=== PATIENT | female | born 1990 | race Caucasian/White ===

== ENCOUNTER 2019-09-24 20:18 | Emergency (ER) | payer OTHER ==
[~2019-09-24] VITALS: Ht 165.1 cm; Wt 123.6 kg
[2019-09-24] MEDS ORDERED: ZOFRAN ODT4 MG PO (20:45)
[2019-09-24 21:13] VITALS: BP 151/64
== END 2019-09-24 21:14 | disposition home or self-care (01) ==
LOC: ER 20:18
DX: R11.2 Nausea with vomiting, unspecified (principal); R51 Headache; M54.6 Pain in thoracic spine; Z88.0 Allergy status to penicillin; V49.9XXA Car occupant (driver) (passenger) injured in unspecified traffic accident, initial encounter; Y93.89 Activity, other specified; Y92.89 Other specified places as the place of occurrence of the external cause; Y99.8 Other external cause status

== ENCOUNTER 2019-11-08 18:19 | Emergency (ER) | payer OTHER ==
[~2019-11-08] VITALS: Ht 165.1 cm; Wt 114.3 kg
[~2019-11-08 18:19] MED LIST: ZOFRAN ODT4 MG PO
[2019-11-08] MEDS ORDERED: MECLIZINE HCL25 M1 PO (18:47)
[2019-11-08 19:06] LABS: ABSOLUTE NEUTROPHILS 5.8 thou/uL (1.4-8.2); BASOPHILS 0.7 % (0.0-2.0); EOSINOPHILS 3.2 % (0.0-3.0); HEMATOCRIT 41.8 % (37.0-47.0); HEMOGLOBIN 14.3 gm/dL (12.0-15.0); LYMPHOCYTES 36.3 % (24.0-44.0); MCHC 34.1 g/dL (28.0-37.0); MCV 87.8 fL (80.0-100.0); PLATELET COUNT 283 thou/uL (150-400); POLYS 54.8 % (36.0-66.0); RBC 4.77 mil/uL (4.20-5.00); RDW 14.6 % (10.5-14.5); WBC 10.6 thou/uL (4.0-11.0)
[2019-11-08 19:17] LABS: CALCIUM 9.2 mg/dL (8.5-10.1); CREATININE 0.8 mg/dL (0.6-1.0); MAGNESIUM 2.1 mg/dL (1.8-2.4); POTASSIUM 3.6 mmol/L (3.5-5.1)
[2019-11-08 20:31] VITALS: BP 123/57
== END 2019-11-08 20:32 | disposition home or self-care (01) ==
LOC: ER 18:19
PROVIDERS: Emergency Medicine
DX: F07.81 Postconcussional syndrome (principal); R11.2 Nausea with vomiting, unspecified; I10 Essential (primary) hypertension; Z90.89 Acquired absence of other organs; Z90.49 Acquired absence of other specified parts of digestive tract; Z88.0 Allergy status to penicillin; Z79.899 Other long term (current) drug therapy

== ENCOUNTER 2020-09-10 19:27 | Emergency (ER) | payer OTHER ==
[~2020-09-10] VITALS: Ht 165.1 cm; Wt 105.2 kg
[~2020-09-10 19:27] MED LIST changes: +MECLIZINE HCL25 M1 PO
[2020-09-10] MEDS ORDERED: ESCITALOPRA5 MG/5 ML PO (20:34)
[2020-09-10] MEDS ORDERED: ULTRAM 50MG TAB50 MG PO (21:33)
[2020-09-10 21:51] VITALS: BP 125/58
== END 2020-09-10 21:54 | disposition home or self-care (01) ==
LOC: ER 19:27
DX: M79.672 Pain in left foot (principal); M25.572 Pain in left ankle and joints of left foot; I10 Essential (primary) hypertension; Z90.89 Acquired absence of other organs; Z79.899 Other long term (current) drug therapy; Z88.0 Allergy status to penicillin

== ENCOUNTER 2020-10-04 09:23 | Emergency (ER) | payer OTHER ==
[~2020-10-04] VITALS: Ht 165.1 cm; Wt 102.1 kg
[~2020-10-04 09:23] MED LIST changes: +ESCITALOPRA5 MG/5 ML PO; +ULTRAM 50MG TAB50 MG PO
[2020-10-04 09:27] VITALS: BP 136/59
[2020-10-04] MEDS ORDERED: MAGNESIUM PO ×2 (09:32)
[2020-10-04] MEDS ORDERED: MAGNESIUM ×2 (09:32)
[2020-10-04] MEDS ORDERED: BARIATRIC MULTIVIT PO ×2 (09:32)
[2020-10-04 09:57] LABS: ABSOLUTE NEUTROPHILS 6.5 thou/uL (1.4-8.2); BASOPHILS 0.5 % (0.0-2.0); EOSINOPHILS 3.2 % (0.0-3.0); HEMATOCRIT 40.9 % (37.0-47.0); HEMOGLOBIN 13.5 gm/dL (12.0-15.0); LYMPHOCYTES 31.6 % (24.0-44.0); MCH 29.9 pg (26.0-34.0); MCV 90.4 fL (80.0-100.0); MONOCYTES 4.4 % (1.0-8.0); PLATELET COUNT 252 thou/uL (150-400); POLYS 60.3 % (36.0-66.0); RBC 4.53 mil/uL (4.20-5.00); WBC 10.7 thou/uL (4.0-11.0)
[2020-10-04 10:06] LABS: CALCIUM 9.1 mg/dL (8.5-10.1); CREATININE 1.1 mg/dL (0.6-1.0); POTASSIUM 3.8 mmol/L (3.5-5.1)
[2020-10-04 10:13] LABS: ALBUMIN 3.6 g/dL (3.4-5.0); TOTAL BILIRUBIN 0.5 mg/dL (0.2-1.0)
[2020-10-04 14:13] LABS: URINE BILIRUBIN NEGATIVE (Negative); URINE BLOOD 1+ (Negative); URINE CLARITY CLEAR; URINE COLOR YELLOW; URINE GLUCOSE-RANDOM* NEGATIVE (Negative); URINE KETONES NEGATIVE (Negative); URINE LEUKOCYTES-REFLEX NEGATIVE (Negative); URINE PROTEIN (DIPSTICK) NEGATIVE (Negative); URINE UROBILINOGEN 0.2 E.U./dl (0.2-1.0)
[2020-10-04 14:21] LABS: URINE NITRITE-REFLEX POSITIVE (Negative)
[2020-10-04 14:23] VITALS: BP 151/63
[2020-10-04 14:32] LABS: SQUAMOUS 4-10 Moderate /LPF (0-3)
[2020-10-04 14:37] LABS: BACTERIA-REFLEX None Seen /HPF (None Seen); CALCIUM OXALATE 0-3 Few /LPF (None Seen); CASTS None Seen /LPF (None Seen); URINE RBC 3-10 Few /HPF (NONE SEEN); URINE WBC-REFLEX None Seen /HPF (0-5)
[2020-10-04 20:39] VITALS: BP 149/57
--- NOTE | 2020-10-04 20:52 | NUR ---
PT C/O LLQ AND LUQ ABDOMINAL PAIN 05/13. SHE DID NOT WANT ANY PAIN MEDICATION. C/O NAUSEA. BELCHING NOTED. ZOFRAN GIVEN.
[2020-10-05 05:17] VITALS: BP 108/46
--- NOTE | 2020-10-05 06:21 | NUR ---
VSS DURING THE NIGHT. IVF INFUSING ORDERED. PT WAS GIVEN ZOFRAN FOR NAUSEA AND HYDROCODONE FOR ABDOMINAL PAIN. PT STATED PAIN AND NAUSEA IMPROVED. SHE SLEPT MOST OF THE NIGHT. RESPIRATIONS EVEN AND UNLABORED. WILL GIVE REPORT TO ONCOMING NURSE.
[2020-10-05 07:06] LABS: HEMATOCRIT 32.8 % (37.0-47.0); MCH 30.1 pg (26.0-34.0); MCHC 33.7 g/dL (28.0-37.0); MCV 89.4 fL (80.0-100.0); RBC 3.67 mil/uL (4.20-5.00); RDW 13.4 % (10.5-14.5); WBC 11.2 thou/uL (4.0-11.0)
[2020-10-05 07:17] LABS: CALCIUM 8.4 mg/dL (8.5-10.1); CREATININE 1.5 mg/dL (0.6-1.0); POTASSIUM 3.9 mmol/L (3.5-5.1)
--- NOTE | 2020-10-05 09:51 | NUR ---
LYRIC DOMINGUEZ @ UROLOGY [phone]
--- NOTE | 2020-10-05 10:44 | NUR ---
ALBERTO @ UROLOGY REPORTS PATIENT IS SAFE TO GO HOME AND ALREADY HAS UROLOGY APPOINTMENT SET WITH SURGERY ON MON AT 1330, REPORTS PATIENT IS AWARE OF THIS ALREADY.
--- NOTE | 2020-10-05 11:13 | NUR ---
TALKED TO DR. SHAFFER AND NOTIFIED OF UROLOGY RECOMMENDATIONS.
[2020-10-05] MEDS ORDERED: FLOMAX0.4 MG PO ×2 (12:42)
[2020-10-05] MEDS ORDERED: HYDROCODON-ACE1 EAC7 PO ×2 (12:42)
[2020-10-05] MEDS ORDERED: CIPRO500 M1 PO ×2 (12:43)
[2020-10-05 13:16] VITALS: BP 125/54
[2020-10-05 14:29] VITALS: BP 121/60
[2020-10-06] MEDS ORDERED: ZOFRAN ODT4 MG PO (23:44)
== END 2020-10-05 14:30 | disposition home or self-care (01) ==
LOC: ER 09:23 → EROBS 15:46 → ER 15:46
PROVIDERS: Emergency Medicine; Hospitalist
DX: N20.1 Calculus of ureter (principal); I10 Essential (primary) hypertension; Z90.89 Acquired absence of other organs; Z98.890 Other specified postprocedural states; Z79.899 Other long term (current) drug therapy; Z88.0 Allergy status to penicillin

== ENCOUNTER 2020-10-06 20:51 | Emergency (ER) | payer OTHER ==
[~2020-10-06] VITALS: Ht 165.1 cm; Wt 106.6 kg
[~2020-10-06 20:51] MED LIST changes: +BARIATRIC MULTIVIT PO; +CIPRO500 M1 PO; +FLOMAX0.4 MG PO; +HYDROCODON-ACE1 EAC7 PO; +MAGNESIUM; +MAGNESIUM PO
[2020-10-06 21:31] LABS: URINE BILIRUBIN NEGATIVE (Negative); URINE BLOOD TRACE (Negative); URINE CLARITY CLEAR; URINE COLOR YELLOW; URINE GLUCOSE-RANDOM* NEGATIVE (Negative); URINE KETONES 1+ (Negative); URINE LEUKOCYTES-REFLEX NEGATIVE (Negative); URINE NITRITE-REFLEX NEGATIVE (Negative); URINE PROTEIN (DIPSTICK) NEGATIVE (Negative); URINE SPECIFIC GRAVITY >= 1.030 (1.005-1.035); URINE UROBILINOGEN 0.2 E.U./dl (0.2-1.0)
[2020-10-06 22:25] LABS: ABSOLUTE NEUTROPHILS 11.1 thou/uL (1.4-8.2); BASOPHILS 0.3 % (0.0-2.0); EOSINOPHILS 1.3 % (0.0-3.0); HEMATOCRIT 36.1 % (37.0-47.0); HEMOGLOBIN 11.9 gm/dL (12.0-15.0); MCH 29.6 pg (26.0-34.0); MCV 89.7 fL (80.0-100.0); MONOCYTES 4.7 % (1.0-8.0); PLATELET COUNT 218 thou/uL (150-400); POLYS 82.7 % (36.0-66.0); RBC 4.03 mil/uL (4.20-5.00); RDW 13.6 % (10.5-14.5); WBC 13.5 thou/uL (4.0-11.0)
[2020-10-06 22:28] LABS: CALCIUM 8.6 mg/dL (8.5-10.1); CREATININE 1.6 mg/dL (0.6-1.0); POTASSIUM 3.8 mmol/L (3.5-5.1)
[2020-10-06 22:36] LABS: ALBUMIN 3.2 g/dL (3.4-5.0); TOTAL BILIRUBIN 0.9 mg/dL (0.2-1.0); TOTAL PROTEIN 6.6 g/dL (6.4-8.2)
[2020-10-06] MEDS ORDERED: ZOFRAN ODT4 MG PO (23:44)
[2020-10-07 00:16] VITALS: BP 132/56
[2020-10-07] MEDS ORDERED: TRAMADOL 50 MG50 MG PO (20:09)
[2020-10-07] MEDS ORDERED: CEFPODOXIME PR200 M1 PO (21:44)
== END 2020-10-07 00:22 | disposition home or self-care (01) ==
LOC: ER 20:51
PROVIDERS: Emergency Medicine
DX: N20.2 Calculus of kidney with calculus of ureter (principal); R11.2 Nausea with vomiting, unspecified; R10.32 Left lower quadrant pain; I10 Essential (primary) hypertension; E28.2 Polycystic ovarian syndrome; Z79.899 Other long term (current) drug therapy; Z88.0 Allergy status to penicillin; Z90.89 Acquired absence of other organs

== ENCOUNTER 2020-10-07 19:45 | Emergency (ER) | payer OTHER ==
[~2020-10-07] VITALS: Ht 165.1 cm; Wt 108.9 kg
[2020-10-07] MEDS ORDERED: TRAMADOL 50 MG50 MG PO (20:09)
[2020-10-07 20:23] LABS: URINE BILIRUBIN NEGATIVE (Negative); URINE BLOOD 3+ (Negative); URINE COLOR YELLOW; URINE GLUCOSE-RANDOM* NEGATIVE (Negative); URINE KETONES 2+ (Negative); URINE LEUKOCYTES-REFLEX NEGATIVE (Negative); URINE NITRITE-REFLEX NEGATIVE (Negative); URINE PROTEIN (DIPSTICK) 1+ (Negative); URINE SPECIFIC GRAVITY >= 1.030 (1.005-1.035); URINE UROBILINOGEN 0.2 E.U./dl (0.2-1.0)
[2020-10-07 20:24] LABS: URINE CLARITY HAZY
[2020-10-07 20:30] LABS: SQUAMOUS 0-3 Few /LPF (0-3); URINE WBC-REFLEX 0-5 Rare /HPF (0-5)
[2020-10-07 20:35] LABS: URINE RBC >20 Many /HPF (NONE SEEN)
[2020-10-07 20:38] LABS: CASTS None Seen /LPF (None Seen); CRYSTALS None Seen /LPF (None Seen)
[2020-10-07 20:50] LABS: ABSOLUTE NEUTROPHILS 9.8 thou/uL (1.4-8.2); BASOPHILS 0.3 % (0.0-2.0); EOSINOPHILS 1.7 % (0.0-3.0); HEMATOCRIT 33.1 % (37.0-47.0); HEMOGLOBIN 11.3 gm/dL (12.0-15.0); LYMPHOCYTES 11.3 % (24.0-44.0); MCH 30.3 pg (26.0-34.0); MCV 89.2 fL (80.0-100.0); MONOCYTES 5.9 % (1.0-8.0); PLATELET COUNT 205 thou/uL (150-400); POLYS 80.8 % (36.0-66.0); RBC 3.71 mil/uL (4.20-5.00); RDW 12.9 % (10.5-14.5); WBC 12.1 thou/uL (4.0-11.0)
[2020-10-07 21:00] LABS: CALCIUM 8.2 mg/dL (8.5-10.1); CREATININE 1.6 mg/dL (0.6-1.0); POTASSIUM 3.7 mmol/L (3.5-5.1)
[2020-10-07 21:05] LABS: ALBUMIN 3.2 g/dL (3.4-5.0); TOTAL BILIRUBIN 0.9 mg/dL (0.2-1.0); TOTAL PROTEIN 6.6 g/dL (6.4-8.2)
[2020-10-07] MEDS ORDERED: CEFPODOXIME PR200 M1 PO (21:44)
[2020-10-07 22:39] VITALS: BP 131/56
== END 2020-10-07 22:43 | disposition home or self-care (01) ==
LOC: ER 19:45
PROVIDERS: Emergency Medicine; Nurse Practitioner
DX: J18.9 Pneumonia, unspecified organism (principal); Z20.822 Contact with and (suspected) exposure to COVID-19; R10.9 Unspecified abdominal pain; I10 Essential (primary) hypertension; Z90.49 Acquired absence of other specified parts of digestive tract; Z90.89 Acquired absence of other organs; Z79.891 Long term (current) use of opiate analgesic; Z79.899 Other long term (current) drug therapy; Z88.0 Allergy status to penicillin